=== PATIENT | male | born 1995 | race Caucasian/White ===

== ENCOUNTER 2017-10-23 15:10 | Day surgery (SDC) | payer OTHER ==
[2017-10-23] MEDS ORDERED: MIDAZOLAM 1 MG/ML 2 ML INJ (19:11)
[2017-10-23] MEDS ORDERED: PROPOFOL 20 ML (20:06)
[2017-10-23] MEDS ORDERED: LIDOCAINE 2% (SDV) 5 ML INJ (20:06)
[2017-10-23] MEDS ORDERED: CEFAZOLIN 1 GM INJ (20:07)
[2017-10-23] MEDS ORDERED: ONDANSETRON 4 MG INJ (20:07)
[2017-10-23] MEDS ORDERED: HYDROmorphONE 1 MG/5 ML IV SYRINGE IV ×2 (20:21→20:30)
[2017-10-23] MEDS ORDERED: DIPHENHYDRAMINE 50 MG INJ IV (20:30)
[2017-10-23] MEDS ORDERED: METOCLOPRAMIDE 10 MG INJ IV (20:30)
[2017-10-23] MEDS ORDERED: KETOROLAC 30 MG INJ IV (20:30)
[2017-10-23] MEDS ORDERED: FENTAnyl 50 MCG/ML VIAL IV (20:30)
[2017-10-23] MEDS: HYDROmorphONE 1 MG/5 ML IV SYRINGE IV (20:32)
[2017-10-23] MEDS: ONDANSETRON 4 MG INJ IV (20:46)
[2017-10-23] MEDS: MEPERIDINE 25 MG INJ IV (20:46)
== END 2017-10-23 21:16 | disposition home or self-care (01) ==
LOC: SDS 15:10
DX: S66.811A Strain of other specified muscles, fascia and tendons at wrist and hand level, right hand, initial encounter (principal); X58.XXXA Exposure to other specified factors, initial encounter
CPT/HCPCS: 29846